=== PATIENT | male | born 1945 | race Caucasian/White ===

== ENCOUNTER 2019-07-27 08:18 | Emergency (ER) | payer MEDICAID, MEDICARE ==
[~2019-07-27] VITALS: Ht 190.5 cm; Wt 90.7 kg
--- NOTE | 2019-07-27 08:25 | NUR ---
PT BIBA RA 878 From Home "Abdominal/epigastric Pain" PT IS AAOX4, NOT IN RESPIRATORY DISTRESS, HOOKED TO MONITOR, KEPT RESTED AND COMFORTABLE, WILL CONTINUE TO MONITOR.
--- NOTE | 2019-07-27 08:30 | NUR ---
AT BEDSIDE FOR EVAL.
[2019-07-27] MEDS ORDERED: ONDANSETRON HCL/PF 4 MG/2 ML VIAL ONE (08:35)
[2019-07-27] MEDS ORDERED: MORPHINE SULFATE INJ 4 MG/ML DISP.SYRIN ONE (08:36)
--- NOTE | 2019-07-27 08:40 | NUR ---
PT IV LINE ESTABLISHED, BLOOD DRAWN AND SENT TO LAB.
--- NOTE | 2019-07-27 08:44 | NUR ---
TECH AT BEDSIDE FOR US.
[2019-07-27] MEDS ORDERED: FAMOTIDINE/PF INJ 20 MG/2 ML VIAL IV ONE ×2 (08:45→09:00)
[2019-07-27 08:49] LABS: BASOPHILS # (AUTO) 0.1 /CMM (0.0-0.2); BASOPHILS % (AUTO) 0.7 % (0.0-2.0); EOSINOPHILS % (AUTO) 0.6 % (0.0-6.0); HEMATOCRIT 50 % (39-51); HEMOGLOBIN 16.5 g/dL (13.5-17.5); LYMPHOCYTES # (AUTO) 2.2 /CMM (0.8-4.8); LYMPHOCYTES % (AUTO) 21.4 % (20.0-44.0); MEAN CORPUSCULAR HGB CONC 33 g/dl (31.0-36.0); MEAN CORPUSCULAR VOLUME 89 fL (80-96); MONOCYTES # (AUTO) 0.8 /CMM (0.1-1.30); MONOCYTES % (AUTO) 8.3 % (2.0-12.0); PLATELET COUNT (AUTO) 192 /CMM (150-450); RED BLOOD CELL COUNT(AUTO) 5.55 MIL/uL (4.5-6.0); WHITE BLOOD COUNT (AUTO) 10.2 K/uL (4.3-11.0)
[2019-07-27 08:57] LABS: CALCIUM, SERUM 9.7 mg/dL (8.5-10.1); CARBON DIOXIDE 28 mmol/L (21-32); CHLORIDE 102 mmol/L (98-107); GLUCOSE 130 mg/dL (74-106); POTASSIUM 4.2 mmol/L (3.5-5.1); SODIUM SERUM 138 mmol/L (136-145); UREA NITROGEN, BLOOD 23 mg/dL (7-18)
[2019-07-27] MEDS ORDERED: IV NS 0.9% 1,000 ML BAG IV ONE (09:00)
[2019-07-27] MEDS ORDERED: ONDANSETRON HCL/PF 4 MG/2 ML VIAL IVP ONE (09:00)
[2019-07-27] MEDS ORDERED: MORPHINE SULFATE INJ 2 MG/ML DISP.SYRIN IV ONE ×2 (09:00→10:00)
--- NOTE | 2019-07-27 09:00 | NUR ---
URINE SPECIMEN COLLECTED AND SENT TO LAB.
[2019-07-27 09:03] LABS: ALANINE AMINOTRANSFERASE 224 U/L (12-78); ALBUMIN 3.7 g/dL (3.4-5.0); ALKALINE PHOSPHATASE 122 U/L (46-116); ASPARTATE AMINOTRANSFERASE 296 U/L (15-37); BILIRUBIN,DIRECT 2.6 mg/dL (0.0-0.2); BILIRUBIN,TOTAL 3.6 mg/dL (0.2-1.0); LIPASE 198 U/L (73-393)
--- NOTE | 2019-07-27 09:06 | NUR ---
BROOM WORKER AT BEDSIDE FOR XRAY.
--- NOTE | 2019-07-27 09:12 | NUR ---
PATIENT REFUSED CHEST XRAY. INFORMED RN.
[2019-07-27 09:22] LABS: APPEARANCE,URINE Clear (CLEAR); BILIRUBIN,URINE SMALL (NEGATIVE); BLOOD, URINE Negative Ery/uL (NEGATIVE); COLOR,URINE Yellow (YELLOW); KETONES,URINE Negative (NEGATIVE); LEUKOCYTE ESTERASE ,URINE Negative (NEGATIVE); NITRITE, URINE Negative (NEGATIVE); PH,URINE 6.5 (5.0-8.0); PROTEIN,URINE Negative (NEGATIVE); UGLUCOSE Negative (NEGATIVE)
[2019-07-27 09:25] LABS: BACTERIA,URINE Rare /HPF (None Seen); SQUAMOUS EPITHELIAL CELL,UR None Seen /HPF (None Seen); WBC,URINE 0-2 /HPF (0-3)
--- NOTE | 2019-07-27 09:38 | NUR ---
PT IS WHEELED TO [facility]IA [facility].
[2019-07-27 11:27] VITALS: BP 141/88
--- NOTE | 2019-07-27 11:27 | NUR ---
IV removed. Catheter intact and site benign. Pressure and 4x4 applied to site. No bleeding noted. Patient discharged to home in stable condition. Written and verbal after care instructions given. Patient verbalizes understanding of instruction.
== END 2019-07-27 11:34 | disposition home or self-care (01) ==
LOC: ER 08:20
DX: R10.13 Epigastric pain (principal); I10 Essential (primary) hypertension; G62.9 Polyneuropathy, unspecified; F32.9 Major depressive disorder, single episode, unspecified
CPT/HCPCS: 36415; 74176; 76705; 80048; 80076; 81001; 83690; 84484; 85025; 93005; 96374; 96375; 99285; J2270; J2405; J3490; J7030; 81000-TC

== ENCOUNTER 2021-10-23 10:21 | Emergency (ER) | payer MEDICARE, OTHER ==
[~2021-10-23] VITALS: Ht 182.9 cm; Wt 77.1 kg
--- NOTE | 2021-10-23 10:26 | NUR ---
TO ER BED 12, [id number] FOR ABDOMINAL PAIN 11/09 X2 DAYS. DENIES N/V. LAST BM YESTERDAY. AAOX3, BREATHING EVEN AND NON LABORED, AWAITING MD OTERO
[2021-10-23 12:51] LABS: BASOPHILS % (AUTO) 0.3 % (0.0-2.0); EOSINOPHILS % (AUTO) 0.2 % (0.0-6.0); HEMATOCRIT 44 % (39-51); HEMOGLOBIN 14.3 g/dL (13.5-17.5); LYMPHOCYTES # (AUTO) 8.4 K/uL (0.8-4.8); LYMPHOCYTES % (AUTO) 53.5 % (20.0-44.0); MEAN CORPUSCULAR HGB CONC 32 g/dl (31.0-36.0); MEAN CORPUSCULAR VOLUME 83 fL (80-96); MONOCYTES # (AUTO) 0.7 K/uL (0.1-1.30); MONOCYTES % (AUTO) 4.6 % (2.0-12.0); NEUTROPHILS # (AUTO) 6.5 K/uL (1.8-8.9); NEUTROPHILS % (AUTO) 41.4 % (43.0-81.0); PLATELET COUNT (AUTO) 259 K/uL (150-450); RED BLOOD CELL COUNT(AUTO) 5.32 MIL/uL (4.5-6.0); WHITE BLOOD COUNT (AUTO) 15.8 K/uL (4.3-11.0)
[2021-10-23 13:06] LABS: ALBUMIN 3.3 g/dL (3.4-5.0); CALCIUM, SERUM 9.7 mg/dL (8.5-10.1); CREATININE 1.1 mg/dL (0.6-1.3); POTASSIUM 4.4 mmol/L (3.5-5.1)
[2021-10-23 13:32] LABS: BILIRUBIN,TOTAL 0.7 mg/dL (0.2-1.0); TOTAL PROTEIN, SERUM 7.7 g/dL (6.4-8.2)
[2021-10-23] MEDS ORDERED: CIPR500T5 PO (14:22)
[2021-10-23] MEDS ORDERED: METR500T PO (14:22)
--- NOTE | 2021-10-23 14:53 | NUR ---
[facility] CALLED FOR TRANSPORT WITH ETA 90 MINS.
[2021-10-23 15:40] LABS: BAND % (MANUAL) 1 % (0.0-5.0); LYMPHOCYTES % (MANUAL) 35 % (16-48); MONOCYTES % (MANUAL) 3 % (0-11.0); NEUTROPHILS % (MANUAL) 43 (42-76); REACTIVE LYMPHOCYTES 18 % (0-0)
--- NOTE | 2021-10-23 16:55 | NUR ---
PICKED UP BY TRANSPORT IN STABLE CONDITION
[2021-10-23 17:04] VITALS: BP 131/82
== END 2021-10-23 17:05 | disposition home or self-care (01) ==
LOC: ER 10:39
DX: K52.9 Noninfective gastroenteritis and colitis, unspecified (principal); N20.0 Calculus of kidney; N21.0 Calculus in bladder; N40.0 Benign prostatic hyperplasia without lower urinary tract symptoms; I10 Essential (primary) hypertension; G62.9 Polyneuropathy, unspecified; Z20.822 Contact with and (suspected) exposure to COVID-19; D72.829 Elevated white blood cell count, unspecified
CPT/HCPCS: 36415; 80053-TC; 85025-TC; C9803

== ENCOUNTER 2022-02-09 19:50 | Emergency (ER) | payer MEDICARE, OTHER ==
[~2022-02-09] VITALS: Ht 190.5 cm; Wt 90.7 kg
[~2022-02-09 19:50] MED LIST: CIPR500T5 PO; METR500T PO
[2022-02-09 21:47] VITALS: BP 140/78
== END 2022-02-09 21:47 | disposition home or self-care (01) ==
LOC: ER 19:52
DX: T78.3XXA Angioneurotic edema, initial encounter (principal); I10 Essential (primary) hypertension; F32.A Depression, unspecified; Z79.899 Other long term (current) drug therapy

== ENCOUNTER 2022-03-30 22:53 | Emergency (ER) | payer MEDICARE, OTHER ==
[~2022-03-30] VITALS: Ht 185.4 cm; Wt 89.8 kg
[~2022-03-30 22:53] MED LIST changes: +ALPR0.255 PO; +DEXA4TAB PO; +ESOM40CA PO; +FINA5TAB11 PO; +HYDR-3980 PO; +VERA120T10 PO
--- NOTE | 2022-03-31 00:20 | NUR ---
[facility] FROM HOME REQUESTING FOR PATIENT EDUCATION ON MEDS S/P DC
--- NOTE | 2022-03-31 00:33 | NUR ---
PT LEFT WITHOUT BEING SEEN BY DR. LETY ANTHONY AWARE.
== END 2022-03-31 00:38 | disposition left against medical advice (07) ==
LOC: ER 22:55
DX: Z53.21 Procedure and treatment not carried out due to patient leaving prior to being seen by health care provider (principal)

== ENCOUNTER 2022-05-18 23:15 | Emergency (ER) | payer MEDICARE, OTHER ==
[~2022-05-18] VITALS: Ht 190.5 cm; Wt 90.7 kg
--- NOTE | 2022-05-19 00:25 | NUR ---
ICATIBANT 30 MG (PATIENT'S OWN MEDICATION) WAS ADMINISTERED SQ ON LLQ PER DR COFFEY'S ORDER,
[2022-05-19] MEDS ORDERED: diphenhydrAMINE HCL 50 MG/ML VIAL IV ONE (00:30)
[2022-05-19] MEDS ORDERED: methylPREDNISolone SOD SUCC 125 MG/2ML VIAL IV ONE (00:30)
[2022-05-19] MEDS ORDERED: methylPREDNISolone SOD SUCC 125 MG/2ML VIAL ONE (00:35)
[2022-05-19] MEDS ORDERED: diphenhydrAMINE HCL 50 MG/ML VIAL ONE (00:35)
--- NOTE | 2022-05-19 00:49 | NUR ---
PATIENT TAKEN TO CT
--- NOTE | 2022-05-19 01:02 | NUR ---
BACK FROM CT
[2022-05-19 01:29] LABS: BASOPHILS # (AUTO) 0.1 K/uL (0.0-0.2); BASOPHILS % (AUTO) 0.4 % (0.0-2.0); EOSINOPHILS % (AUTO) 0.9 % (0.0-6.0); HEMATOCRIT 40 % (39-51); HEMOGLOBIN 12.8 g/dL (13.5-17.5); LYMPHOCYTES % (AUTO) 64.9 % (20.0-44.0); MEAN CORPUSCULAR HGB CONC 32 g/dl (31.0-36.0); MEAN CORPUSCULAR VOLUME 83 fL (80-96); MONOCYTES # (AUTO) 0.8 K/uL (0.1-1.30); NEUTROPHILS # (AUTO) 4.9 K/uL (1.8-8.9); NEUTROPHILS % (AUTO) 28.8 % (43.0-81.0); PLATELET COUNT (AUTO) 233 K/uL (150-450); RED BLOOD CELL COUNT(AUTO) 4.84 MIL/uL (4.5-6.0); WHITE BLOOD COUNT (AUTO) 16.9 K/uL (4.3-11.0)
[2022-05-19 01:47] LABS: CALCIUM, SERUM 9.8 mg/dL (8.5-10.1); CREATININE 0.9 mg/dL (0.6-1.3); POTASSIUM 4.2 mmol/L (3.5-5.1)
[2022-05-19] MEDS ORDERED: CLINDAMYCIN 600 MG in IV D5W 100 ML IV ONE (04:00)
--- NOTE | 2022-05-19 04:21 | NUR ---
[facility] CALLED FOR HIGHER LEVEL OF CARE. PER GIBRAN NO CAPACITY.
--- NOTE | 2022-05-19 04:23 | NUR ---
[facility] CALLED FOR HIGHER LEVEL OF CARE, NO CAPACITY.
--- NOTE | 2022-05-19 04:35 | NUR ---
[facility] CALLED FOR HIGHER LEVEL OF CARE. NO CAPACITY.
--- NOTE | 2022-05-19 04:50 | NUR ---
[facility] CALLED FOR HIGHER LEVEL OF CARE. NO ENT.
--- NOTE | 2022-05-19 07:11 | NUR ---
Patient does not wish to proceed with medical care recommended by Dr. Givens. Patient given information related to possible complications, up to and including , which could occur as a result of leaving the hospital at this time. Patient verbalizes understanding of risks involved due to leaving against medical advice. Patient has signed AMA form.
--- NOTE | 2022-05-19 07:30 | NUR ---
IV removed. Catheter intact and site benign. Pressure and 4x4 applied to site. No bleeding noted.
--- NOTE | 2022-05-19 07:35 | NUR ---
Patient does not wish to proceed with medical care recommended by ( saker ). Patient given information related to possible complications, up to and including , which could occur as a result of leaving the hospital at this time. Patient verbalizes understanding of risks involved due to leaving against medical advice. Patient has signed AMA form.
--- NOTE | 2022-05-19 08:26 | NUR ---
RECEIVED A [facility] VOUCHER FROM NURSING OFFICE TO TAKE PT HOME. VOUCHER #[id number]. ETA OF [facility] IS 10MIN
[2022-05-19 10:10] VITALS: BP 132/81
[2022-05-19 10:23] LABS: LYMPHOCYTES % (MANUAL) 58 % (16-48); MONOCYTES % (MANUAL) 5 % (0-11.0); NEUTROPHILS % (MANUAL) 37 (42-76)
== END 2022-05-19 10:12 | disposition left against medical advice (07) ==
LOC: ER 23:16
DX: J39.2 Other diseases of pharynx (principal); Z20.822 Contact with and (suspected) exposure to COVID-19; G62.9 Polyneuropathy, unspecified; F32.A Depression, unspecified; I10 Essential (primary) hypertension; Z79.899 Other long term (current) drug therapy; Z53.29 Procedure and treatment not carried out because of patient's decision for other reasons
CPT/HCPCS: 99285; 96365; 70490; 96375; 87426; 85025; 80048; 36415; 85007; J3490; J1200; J2930; J7060; C9803

== ENCOUNTER 2024-07-17 20:23 | Emergency (ER) | payer MEDICARE, OTHER ==
[~2024-07-17] VITALS: Ht 190.5 cm; Wt 90.7 kg
[2024-07-17 21:18] LABS: BASOPHILS % (AUTO) 0.5 % (0.0-2.0); EOSINOPHILS % (AUTO) 0.1 % (0.0-6.0); HEMATOCRIT 44 % (39-51); HEMOGLOBIN 14.9 g/dL (13.5-17.5); LYMPHOCYTES # (AUTO) 1.1 K/uL (0.8-4.8); LYMPHOCYTES % (AUTO) 19.5 % (20.0-44.0); MEAN CORPUSCULAR HEMOGLOBIN 32 PG (26.0-33.0); MEAN CORPUSCULAR HGB CONC 34 g/dl (31.0-36.0); MEAN CORPUSCULAR VOLUME 94 fL (80-96); MONOCYTES # (AUTO) 0.4 K/uL (0.1-1.30); MONOCYTES % (AUTO) 8.1 % (2.0-12.0); NEUTROPHILS # (AUTO) 3.9 K/uL (1.8-8.9); NEUTROPHILS % (AUTO) 71.8 % (43.0-81.0); PLATELET COUNT (AUTO) 109 K/uL (150-450); RED BLOOD CELL COUNT(AUTO) 4.63 MIL/uL (4.5-6.0); RED CELL DISTRIBUTION WIDTH 15.5 % (11.5-15.0); WHITE BLOOD COUNT (AUTO) 5.4 K/uL (4.3-11.0)
[2024-07-17 21:22] LABS: CALCIUM, SERUM 9.4 mg/dL (8.5-10.1); CARBON DIOXIDE 27 mmol/L (21-32); CHLORIDE 109 mmol/L (98-107); CREATININE 0.9 mg/dL (0.6-1.3); GLUCOSE 111 mg/dL (74-106); POTASSIUM 3.7 mmol/L (3.5-5.1); SODIUM SERUM 142 mmol/L (136-145); UREA NITROGEN, BLOOD 21 mg/dL (7-18)
[2024-07-17 22:51] VITALS: BP 130/82; TEMP 98.2; O2SAT 98
== END 2024-07-17 23:00 | disposition home or self-care (01) ==
LOC: ER 21:09
DX: M25.512 Pain in left shoulder (principal); I10 Essential (primary) hypertension; I25.10 Atherosclerotic heart disease of native coronary artery without angina pectoris; F32.A Depression, unspecified; Z79.52 Long term (current) use of systemic steroids; Z79.899 Other long term (current) drug therapy
CPT/HCPCS: 36415; 71045-TC; 80048-TC; 84484-TC; 85025-TC

== ENCOUNTER 2024-11-18 04:18 | Emergency (ER) | payer MEDICARE, OTHER ==
[~2024-11-18] VITALS: Ht 190.5 cm; Wt 90.7 kg
[2024-11-18] MEDS ORDERED: ASPIRIN EC 325 MG TABLET.DR PO ONE (04:47)
[2024-11-18] MEDS: ASPIRIN EC 325 MG TABLET.DR PO ONE (04:50)
[2024-11-18 04:57] LABS: PLATELET COUNT (AUTO) 111 K/uL (150-450); RED BLOOD CELL COUNT(AUTO) 4.56 MIL/uL (4.5-6.0); RED CELL DISTRIBUTION WIDTH 15.0 % (11.5-15.0); WHITE BLOOD COUNT (AUTO) 7.7 K/uL (4.3-11.0)
[2024-11-18 05:04] LABS: CALCIUM, SERUM 9.6 mg/dL (8.5-10.1); CREATININE 0.8 mg/dL (0.6-1.3); SODIUM SERUM 141.0 mmol/L (136-145); UREA NITROGEN, BLOOD 16.0 mg/dL (7-18)
[2024-11-18 06:29] LABS: ASPARTATE AMINOTRANSFERASE 158.0 U/L (15-37); TOTAL PROTEIN, SERUM 7.2 g/dL (6.4-8.2)
[2024-11-18 08:09] VITALS: BP 125/67; TEMP 97.5; O2SAT 99
== END 2024-11-18 08:09 | disposition home or self-care (01) ==
LOC: ER 04:29
DX: K80.70 Calculus of gallbladder and bile duct without cholecystitis without obstruction (principal); R10.13 Epigastric pain; R00.2 Palpitations; R41.0 Disorientation, unspecified; R74.01 Elevation of levels of liver transaminase levels; F32.A Depression, unspecified; I10 Essential (primary) hypertension; I25.10 Atherosclerotic heart disease of native coronary artery without angina pectoris; N40.0 Benign prostatic hyperplasia without lower urinary tract symptoms; I49.3 Ventricular premature depolarization; Z79.52 Long term (current) use of systemic steroids; Z79.899 Other long term (current) drug therapy; Z87.19 Personal history of other diseases of the digestive system; Z95.5 Presence of coronary angioplasty implant and graft; Z86.69 Personal history of other diseases of the nervous system and sense organs; Z87.39 Personal history of other diseases of the musculoskeletal system and connective tissue; Z60.2 Problems related to living alone
CPT/HCPCS: 36415; 76705-TC; 80048-TC; 80076-TC; 83690-TC; 84484-TC; 85025-TC